=== PATIENT | female | born 1980 | race Caucasian/White ===

== ENCOUNTER 2023-12-30 12:20 | Inpatient (IN) | payer BC, SELFPAY ==
[2023-12-30] VITALS (13 sets, daily range): BP systolic 143–197; BP diastolic 67–114; BMI 46.7; BMI 45.0
[2023-12-30] MEDS: TYLENOL 1000 MG PO (09:39)
[2023-12-30 09:52] LABS: % Basophils 0.4 % (0-2); % Eosinophils 5.9 % (0-6); % Immature Granulocytes 0.2 % (0-0.5); % Lymphocytes 20.8 % (20.5-51.1); % Monocytes 5.5 % (1.7-9.3); % Neutrophils 67.2 % (42.2-75.2); Absolute Eosinophils 0.6 10^3/uL (0-0.7); Absolute Lymphocytes 2.2 10^3/uL (1.2-3.4); Absolute Monocytes 0.6 10^3/uL (0.1-0.6); Absolute Neutrophils 6.9 10^3/uL (1.4-6.5); Hematocrit 40.4 % (37.0-47.0); Hemoglobin 13.9 g/dL (12.0-16.0); Mean Corp Hgb Conc. 34.4 g/dL (33.0-37.0); Mean Corpuscular Hgb 28.8 pg (27.0-31.0); Mean Corpuscular Volume 83.8 fL (81.0-99.0); Mean Platelet Volume 8.8 fL (7.4-10.4); Nucleated Red Blood Cells % 0 %; Platelet Count 414 10^3/uL (130-400); Red Blood Cell Count 4.82 10^6/uL (4.20-5.40); Red Cell Dist. Width 12.6 % (11.5-14.5); White Blood Cell Count 10.3 10^3/uL (4.8-10.8)
--- NOTE | 2023-12-30 10:04 | ED.GENMED ---
History of Present Illness
General
Chief Complaint: Blood Pressure Problem
Source: patient
Exam Limitations: none
Time Seen by Provider: 12/30/23 09:06
Nursing documentation reviewed up to this point in time: agreed with
Travel History
Have you had any contact with someone who has COVID-19?: No
Do you have any symptoms of coronavirus? Fever > 100 degrees, chills, cough, shortness of breath, sore throat, loss of taste or smell, muscle aches, or headache?: No
History of Present Illness
History of Present Illness:
Patient is a 43-year-old female with a history of cervical stenosis and migraines in the past with a more recent diagnosis of hypertension over the summer 2022 who presents for elevated blood pressure, headache and blurred vision. Patient says that
since July she has been in the process of being worked up for why she has elevated blood pressure readings anywhere from 180-190/100. It seems to be worse with standing and improved with lying. She was having some flushing and striae in her
abdomen and so her family doctor started with a cortisol level which was 3. This was a serum a.m. cortisol level. She was then referred to endocrine who she saw at [facility] and they did more testing including these following numbers
Norepinephrine 346, epinephrine 29, dopamine, less than 30, DHEA 88, cortisol 5.8, aldosterone 8.3, ACTH 12.6 and this was on 9�13
Patient was then started on hydrocortisone 30 mg which she took for a month and then taper down slowly and is on a dose of 10 currently. The plan is to apparently wean her off completely and then recheck her numbers. Patient was never told that
she could have a pheochromocytoma. She actually has not been really given an explanation of what is causing her blood pressures but they have been continuing to be elevated at home. Her readings are 160s to 180s over 100. She says she feels lousy
most days. She does get headaches which she has currently which is a dull headache and does not feel like one of her typical migraines. She has also had some intermittent blurred vision. Patient yesterday was bumped up from 25 to 50 mg of
metoprolol succinate and added losartan 50 and came into the [facility] lead office for blood pressure check today which was still elevated in the 180s over 90s so she was referred to the emergency department.
Patient is feeling frustrated by the slow workup via endocrine and believes that she needs additional workup. She was coming here for second opinion. I
She denies ongoing chest pain but had a little bit of intermittent chest pain over the last couple of days, denies numbness tingling or weakness in her arms or legs, neck pain, abdominal pain
Past History
Past History
ED Past Medical History: HTN and Other (Cervical disc disease, fibromyalgia, glaucoma which cause migraines which has been treated)
ED Past Surgical History: Orthopedic (Pain management procedures on the spine)
Social History
Tobacco: Non-smoker
Alcohol: None
Drug: None
Personal:
Living: with family
Employment: Employed
Family History
Family History: Other (Noncontributory)
Review of Systems
Review of Systems
Allergies reviewed?: Yes
All Other Systems: Not applicable
Phy Exam
Physical Exam
Physical Exam:
GENERAL: Alert , in no apparent distress elevated BMI
EYE: pupils equal and reactive
NECK: Supple
ENT: o/p clr, mmm.
CARDIAC: Regular rate and rhythm .
LUNGS: Clear breath sounds bilaterally, no acute respiratory distress, no wheezes/rales/rhonchi
ABDOMEN: Soft, obese without focal tenderness, no r/g, no cvat, normal bowel sounds
NEUROLOGICAL: Alert and oriented, no focal neuro deficits cranial nerves intact
SKIN: Warm and dry, skin intact.
MUSCULOSKELETAL: No edema, well perfused. neg last's sign
PSYCH: Normal and appropriate interaction.
Course
Orders/Labs/Results
Orders:
Orders
12/30/23 09:29
Electrocardiogram (*1) Stat
Reason for Study: Other
Other Reason for Exam: Headache
Cardiac Monitoring- Treatment ONCE
EKG- Treatment ONCE
Acetaminophen [Tylenol] 1,000 mg PO NOW STA
12/30/23 09:45
Basic Metabolic Panel Urgent
Complete Blood Count/With Diff Urgent
Glycohemoglobin (HgbA1c) Urgent
Troponin I Urgent
12/30/23 Lunch
Sodium, 2 Gram
At Your Request: Full Participation
12/30/23 10:10
HydrALAZINE [Apresoline] 10 mg IV NOW STA
12/30/23 10:25
Metanephrines, Plasma (free) [S] Urgent
12/30/23 10:26
CMP [Comprehensive Metabolic Panel] Urgent
12/30/23 11:15
Add On- LAB Routine
Tests Added?: HbA1C
Add On- LAB Stat
Tests Added?: urine HCG qual
12/30/23 11:20
US Renal Artery Routine
Comment:
Reason For Exam: HTN. R/O RYDER
12/30/23 11:22
HCG, Urine Qualitative Screen Routine
Comment: PLEASE COLLECT; NO URINE SPECIMEN IN LAB TO ADD ON TO
12/30/23 11:45
Admit/Transfer Patient As Directed
Co-Sign Provider:
Level of Care: Inpatient admission
Assign to:: Telemetry
Physician / Group: hospitalist
Diagnosis: HTN Urgency
Reason for Telemetry: Other
Other Reason for Telemetry: HTN urgency
Date to Stop Telemetry: 01/01/24
Time to Stop Telemetry: 11:00
Reason for Hospitalization: HTN urgency
Expected length of stay greater than two midnights?: Yes
ELOS- Estimated Length of Stay in days: 2
I certify the patient meets the requirements for IP care: Yes
12/30/23 11:46
Code Status As Directed
Resuscitation Status: Full Code
12/30/23 13:32
Albuterol [ProAIR HFA INHALER] 1 puff INH R Q4HPRN PRN
HydrALAZINE [Apresoline] 5 mg IV Q6HPRN PRN
12/30/23 13:32
NEPHROLOGY CONSULT Routine
Consulting Provider: Girish Kirk V.
Was physician already notified: Yes
Reason for consult: HTN
Activity As Directed
Activity Level: Ambulate
Neurological Checks As Directed
Frequency: q8h
Additional Instructions:: 24 hours
Vital Signs As Directed
Frequency: Per unit guidelines
Cpap [RESP] Routine
Patient to use own unit?: Yes
DX Deep Vein Thrombosis Video Routine
12/30/23 14:21
Troponin I Q6H
12/30/23 18:00
Enoxaparin Sodium [Lovenox] 40 mg SC QPM
12/30/23 19:32
Troponin I Q6H
12/30/23 20:00
Duloxetine Delayed Release [Cymbalta Delayed Release] 60 mg PO BID
12/30/23 22:00
Anusol Hc Suppository [Anusol Hc] 25 mg RECTAL HS
12/31/23 06:00
Basic Metabolic Panel IN AM
Complete Blood Count/No Diff IN AM
12/31/23 08:00
Cholecalciferol (Vitamin D3) [VITAMIN D3 (cholecalciferol)] 25 mcg PO DAILY
Cyanocobalamin [Vitamin B-12] 1,000 mcg PO DAILY
Hydrocortisone [Cortef] 10 mg PO DAILY
Losartan [Cozaar] 50 mg PO DAILY
Metoprolol Xl [Toprol Xl] 50 mg PO DAILY
01/01/24 11:00
DC Protocol for Telemetry ONCE
Abnormal Lab Results
12/30/23 12/30/23
09:45 10:26
Plt Count 414 H 10^3/uL
(130-400)
Absolute Neuts (auto) 6.9 H 10^3/uL
(1.4-6.5)
Creatinine 0.5 L mg/dL
(0.6-1.0)
Glucose 137 H mg/dl 131 H mg/dl
(70-99) (70-99)
Hemoglobin A1c 6.5 H %
(4.0-5.6)
ALT 37 H U/L
(0-35)
12/30/23 09:45
12/30/23 10:26
Vital Signs
Initial and Last Documented VS:
Initial Vital Signs
Temp Pulse Resp BP Pulse Ox
98.3 F 66 16 180/95 98
12/30/23 08:57 12/30/23 08:57 12/30/23 08:57 12/30/23 08:57 12/30/23 08:57
Last Documented Vital Signs
Temp Pulse Resp BP Pulse Ox
98.3 F 74 20 155/93 98
12/30/23 15:31 12/30/23 15:31 12/30/23 15:31 12/30/23 15:31 12/30/23 15:31
MDM/Problems Addressed
Differential Diagnosis Includes:
pheo, ryder, pseudotumor
MDM/Problems Addressed:
43 y/o F with ongoign hypertension dx in july, coming in with sypmtomatic htn/htn urgency 180-190/100, positional worsening of bp with standing, some mild blurred vision, headache; on metoprolol 25 xl for a few monhts and just increased to 50
mg daily and added losartan 50 mg with continued bp elevation; also seeing endocrine through [facility] for low cortisol during this BP w/u; the endocrine started hydrocortisone 30 and she is down to 10 mg; i spoke with kory on-call today for
endocrinology who wasn't sure why she was started on the hydrocortisone if her cortisol was only 5, and he thought she would have been w/u for PHEO but i'm not so sure, she never had metanephrines; so i suppose ddx is pseudotumor, pheo, RYDER, etc;
but want to admit for hypertensive urgency; i gave her a dose of hydralazine with some improvement. trop neg. cr normal; ekg normal
*Critical Care Note
Total Time (30-74mins, 75-104mins- exclusive of procedures): Not Applicable
ED Attending Note
-
Portions of this chart may have been created with voice recognition software.� Occasional wrong word or��sound alike� substitutions may have occurred due to the inherent limitations of voice recognition software.
Discharge Plan
Departure
Patient Disposition: Admit
Date of Disposition: 12/30/23
Time of Disposition: 10:15
Admit to: Telemetry
Presentation/result/management discussed w/ accepting MD/DO: Hospitalist
Condition: Fair
Covid-19: Not Applicable
Discharge Problem:
Hypertensive urgency
Interventions
Interventions:
*Risk Screen - Suicide Last Done: 12/30/23 09:07
*General Assessment Last Done: 12/30/23 09:18
*Neglect/Abuse Screening Last Done: 12/30/23 09:07
ED- Fall Risk Assessment Last Done: 12/30/23 12:34
*ED COVID-19 Vaccine History Last Done: 12/30/23 08:57
*Nursing Disposition Last Done: 12/30/23 13:08
ED- Cardiac Assessment Last Done: 12/30/23 09:17
ED- Neurological Assessment Last Done: 12/30/23 09:18
ED- Pulmonary Assessment Last Done: 12/30/23 09:18
Discharge Date and Time
Discharge Date/Time: 12/30/23 13:00
[2023-12-30 10:14] LABS: Blood Urea Nitrogen 13 mg/dl (7-17); Calcium 9.3 mg/dl (8.4-10.2); Chloride 105 mmol/L (98-107); Estimated Creatinine Clearance > 125 ml/min; Glucose 137 mg/dl (70-99); Sodium 136 mmol/L (135-145); eGFR > 60.00
[2023-12-30] MEDS: APRESOLINE 10 MG IV (10:15)
[2023-12-30 10:17] LABS: Troponin I < 0.012 ng/ml
[2023-12-30 10:43] LABS: Carbon Dioxide 24 mmol/L (22-30)
[2023-12-30 10:50] LABS: ALT (SGPT) 37 U/L (0-35); AST (SGOT) 35 U/L (14-36); Albumin 3.9 g/dl (3.5-5.0); Alkaline Phosphatase 89 U/L (38-126); Blood Urea Nitrogen 13 mg/dl (7-17); Calcium 9.2 mg/dl (8.4-10.2); Chloride 106 mmol/L (98-107); Estimated Creatinine Clearance > 125 ml/min; Glucose 131 mg/dl (70-99); Potassium 4.2 mmol/L (3.5-5.1); Sodium 136 mmol/L (135-145); Total Bilirubin 0.6 mg/dl (0.2-1.3); Total Protein 6.8 g/dl (6.3-8.2); eGFR > 60.00
[2023-12-30 11:02] LABS: Carbon Dioxide 23 mmol/L (22-30)
--- NOTE | 2023-12-30 11:11 | HPS.HSE ---
Family Physician
-
Family Physician: Varsha Mcmillan PA-C
Chief Complaint
-
Elevated BP
History of Present Illness
43-year-old female was diagnosed with hypertension since July 2023. She was at an appointment where her blood pressure was found to be high. Then saw PCP Dr.Molly Mcmillan , who also noted blood pressure to be high. She was started on
metoprolol 25 mg and was referred to endocrinology. She has been seeing from [facility]. She had some secondary hypertension workup done. Her cortisol level was found to be 3.8. (5.8 on another lab) she was started on hydrocortisone 15
in the morning and 10 in the evening in July. Then slowly she is being weaned down and she is on 10 mg p.o. daily dose now. She had serum ACTH level which was 12.6, aldosterone level 8.3, DHEA 88, dopamine less than 30, epinephrine 29,
norepinephrine 346. She states that her standing blood pressure is always high and she has a pulsating feeling in her head. She also has had some nausea and blurry vision. She always feels hot and flushed. Her pressure was still high yesterday
at endocrinology office where she saw Dr. Kristyn Hodge. Metoprolol dose was increased to 50 mg and losartan was added. She took 50 mg of losartan yesterday and this morning. Today her blood pressure was still elevated at endocrinology office
and she decided to come to [facility] for second opinion.
She does not have any numbness weakness tingling anywhere in the body.
No mention of chest pain to me even though ER has documented that.
Medical History
Past Medical History
Past Medical History: Reports Other
Additional Past Medical History:
Migraine, hypertension, sleep apnea on CPAP, spinal stenosis, fibromyalgia, anxiety depression, obesity, descending colon polyp, internal hemorrhoids
Past Surgical History: Reports Other
Additional Past Surgical History:
, general surgery, eye surgery for glaucoma, septoplasty, colonoscopy 2020, endoscopy 2021
Social History
Tobacco: Former Smoker (Quit smoking 2017)
Alcohol: Occasional
Drug: None
Personal:
Living: With Family
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
Family History
Family History: Diabetes (Mother) and Other (Father alcoholic and he has depression and anxiety)
Allergies / Home Medications
Allergies reflects when Allergies were last updated in [employer].
Home Medications with original date entered in [employer]
Allergy/Medication List:
Allergies
Allergy/AdvReac Type Severity Reaction Status Date / Time
No Known Allergies Allergy Verified 12/30/23 09:04
Home Medications
albuterol sulfate 90 mcg/actuation aerosol inhaler 1 puff inhalation R Q4HPRN PRN ASTHMA 06/18/21
cholecalciferol (vitamin D3) 25 mcg (1,000 unit) tablet (Vitamin D3) 25 mcg PO DAILY Supplement 12/30/23
cyanocobalamin (vitamin B-12) 1,000 mcg tablet 1,000 mcg PO DAILY Supplement 12/30/23
duloxetine 60 mg capsule,delayed release (Cymbalta) 60 mg PO BID Mental Health/Anxiety 12/30/23
flaxseed oil 1,000 mg capsule 1,000 mg PO BID Supplement 12/30/23
ginkgo biloba 40 mg tablet 40 mg PO DAILY Supplement 12/30/23
hydrocortisone 10 mg tablet 10 mg PO DAILY Anti-Inflammatory 12/30/23
losartan 50 mg tablet 50 mg PO DAILY Blood Pressure 12/30/23
meloxicam 15 mg tablet 15 mg PO DAILY Pain 12/30/23
metoprolol succinate 50 mg tablet,extended release 24 hr (Toprol XL) 50 mg PO DAILY Blood Pressure 12/30/23
turmeric 400 mg capsule 400 mg PO QPM Supplement 12/30/23
Review of Systems
-
A 12 point ROS was completed and negative except as noted: Yes
Constitutional: Reports Weight Gain (15 pounds since July when she was started on steroids)
Respiratory: Denies Cough or Trouble Breathing
Cardiac: Denies Chest Pain
Abdomen/GI: Denies Abdominal Pain
: Reports Other (Hemorrhoidal bleeding off-and-on)
Neurological: Reports Dizzy
Physical Exam
Vital Signs
Vital Signs
Temp Pulse Resp BP Pulse Ox
98.3 F 63 16 176/93 94
12/30/23 08:57 12/30/23 10:00 12/30/23 10:00 12/30/23 10:15 12/30/23 10:00
Physical Exam
General: Comfortable and Obese
Respiratory: Clear
Cardiac: S1/S2 and Regular Rhythm
GI: Soft
Skin: Warm
Neuro: No Motor Deficits and Nonfocal/grossly intact
Psych: Calm and Intact Judgment/Insight
Laboratory Results
-
12/30/23 09:45
12/30/23 10:26
Laboratory Results
Total Bilirubin 0.6 mg/dl (0.2-1.3) 12/30/23 10:26
AST 35 U/L (14-36) 12/30/23 10:26
ALT 37 U/L (0-35) H 12/30/23 10:26
Alkaline Phosphatase 89 U/L (38-126) 12/30/23 10:26
Troponin I < 0.012 ng/ml 12/30/23 09:45
Data Reviewed
-
CT Scan: Report Reviewed by me (CT of the head-no acute intracranial abnormality)
Medical Tests (Nuc Med, Echo, EKG etc): Image Personally Visualized and interpreted (EKG-sinus rhythm no ischemia)
Impression/Plan
-
IMPRESSION/PLAN:
# Hypertensive urgency
Poorly controlled hypertension
Admit to telemetry
2 Gram sodium diet
Blood pressure-better after IV hydralazine
Continue losartan and metoprolol
Consider addition of calcium channel blockers-nifedipine
Aldosterone level not elevated
Secondary hypertension workup as above in H&P
Renal artery ultrasound to rule out stenosis
Hold meloxicam
Nephrology evaluation
# Adrenal insufficiency
Patient was started on hydrocortisone 15 in the morning and 10 in the evening in July
Is being weaned down to 10 mg in the morning now
The plan is to get repeat as outpatient
Follows with at [facility]
# Hyperglycemia-check hemoglobin A1c
# Asthma-continue as needed nebulizer treatments
# Fibromyalgia-continue Cymbalta
# History of glaucoma-she used to get headaches which got better after glaucoma surgery
She does not use any eyedrops note
# Internal hemorrhoids-found on colonoscopy in 2020. Patient has off-and-on bleeding
Needs to see GI as outpatient she has an appointment in May
Hemoglobin is stable
Will order hydrocortisone suppositories
# Sleep apnea-continue CPAP
# Obesity with a BMI of 46
States that she gained 15 pounds since July
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
# Fo-toofxa-utdr 2017
# DVT prophylaxis-Lovenox
# Full code
Discussed with family at bedside
[2023-12-30 11:43] LABS: HCG, Urine Qualitative Screen Negative
[2023-12-30 12:13] LABS: Glycohemoglobin (HgbA1c) 6.5 % (4.0-5.6)
[2023-12-30 14:58] LABS: Troponin I < 0.012 ng/ml
--- NOTE | 2023-12-30 15:39 | W.PN.UPDATE ---
Update Note
Progress Note Update
Hemoglobin A1c 6.5. Patient made aware.
Diabetic education consult
Dietary consult
Accu-Cheks
Patient education
Discussed about metformin she is open to starting it therefore we will start
Diet and weight loss advised also
[2023-12-30 16:32] LABS: Glucose - Point of Care 96 mg/dl (70-99)
--- NOTE | 2023-12-30 17:38 | W.CON.NEPH ---
Consultation
-
Date/Time Consultation Requested: 12/30/23 1330
Date/Time Consultation Performed: 12/30/23 1700
Requesting Provider: Dr Junie Evans
Performing Provider: Fara Lewis
Reason for Consultation: HTN
Medical History
-
Chief Complaint: HTN
History of Present Illness:
43-year-old female was diagnosed with new onset of hypertension since July 2023.�She subsequently saw her PCP and w/u was done which noted to have low cortisol and eventually saw Endo Dr Young at [place], further w/u for secondary
hypertension was done.� Her cortisol level was found to be 3.8. (5.8 on another lab) and she was started on hydrocortisone 15 in the morning and 10 in the evening in July-weaned down to 10mg daily now.�Her BP remained high symptomatic when
stands with mild palpitation hence was started on metoprolol by PCP. Which did not help much of her BPs and when she was at Endo office yeterday her BP were 170s and metoprolol increased and Losartan added. This morning her BPs were still high 180s
hence she came to ER. She reports whenever BP high she feels it specially standing and some chest tightness. No SOB or edema. She is not particularly following low salt diet. Old labs: serum ACTH level which was 12.6, aldosterone level 8.3, DHEA
88, dopamine less than 30, epinephrine 29, norepinephrine 346.�
She does not have any numbness weakness tingling anywhere in the body. No dysuria, reports compliance with CPAP follows Dr Gusman.
She also follows Rheum at [facility] for fibromyalgia controlled on high dose of cymbalta.
On arrival her SBP in 180s, better at 150 with hydralzine iv.
Past Medical History
Migraine, hypertension, sleep apnea on CPAP, spinal stenosis, fibromyalgia, anxiety depression, obesity, descending colon polyp, internal hemorrhoids
Past Surgical History:
, general surgery, eye surgery for glaucoma, septoplasty, colonoscopy 2020, endoscopy 2020
Social History
Tobacco: Former Smoker (quit in 2018)
Alcohol: Occasional
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
Family History
no ckd
Diabetes (Mother) and Other (Father alcoholic and he has depression and anxiety)
Allergies / Home Medications
Allergy/AdvReac Type Severity Reaction Status Date / Time
No Known Allergies Allergy Verified 12/30/23 09:04
Medication Instructions Recorded Confirmed Type
albuterol sulfate 90 mcg/actuation 1 puff inhalation R Q4HPRN PRN 06/18/21 12/30/23 History
aerosol inhaler ASTHMA
cholecalciferol (vitamin D3) 25 25 mcg PO DAILY Supplement 12/30/23 12/30/23 History
mcg (1,000 unit) tablet (Vitamin
D3)
cyanocobalamin (vitamin B-12) 1,000 mcg PO DAILY Supplement 12/30/23 12/30/23 History
1,000 mcg tablet
duloxetine 60 mg capsule,delayed 60 mg PO BID Mental Health/Anxiety 12/30/23 12/30/23 History
release (Cymbalta)
flaxseed oil 1,000 mg capsule 1,000 mg PO BID Supplement 12/30/23 12/30/23 History
fluticasone furoate 200 1 inh inhalation DAILY 12/30/23 12/30/23 History
mcg-vilanterol 25 mcg/dose
inhalation powder (Breo Ellipta)
ginkgo biloba 40 mg tablet 40 mg PO DAILY Supplement 12/30/23 12/30/23 History
hydrocortisone 10 mg tablet 10 mg PO DAILY Anti-Inflammatory 12/30/23 12/30/23 History
lorazepam 0.5 mg tablet 0.5 mg PO TID PRN anxiety 12/30/23 12/30/23 History
losartan 50 mg tablet 50 mg PO DAILY Blood Pressure 12/30/23 12/30/23 History
meloxicam 15 mg tablet 15 mg PO DAILY Pain 12/30/23 12/30/23 History
metoprolol succinate 50 mg 50 mg PO DAILY Blood Pressure 12/30/23 12/30/23 History
tablet,extended release 24 hr
(Toprol XL)
turmeric 400 mg capsule 400 mg PO QPM Supplement 12/30/23 12/30/23 History
Review of Systems
-
All complete 12 point ROS inquired and found negative other than stated in HPI
History Source: Patient
Physical Exam
Vital Signs
Vital Signs
Temp Pulse Resp BP Pulse Ox
98.3 F 74 20 155/93 98
12/30/23 15:31 12/30/23 15:31 12/30/23 15:12/30/23 15:12/30/23 15:31
Lab Results
WBC 10.3 10^3/uL (4.8-10.8) 12/30/23 09:45
RBC 4.82 10^6/uL (4.20-5.40) 12/30/23 09:45
Hgb 13.9 g/dL (12.0-16.0) 12/30/23 09:45
Hct 40.4 % (37.0-47.0) 12/30/23 09:45
Plt Count 414 10^3/uL (130-400) H 12/30/23 09:45
Sodium 136 mmol/L (135-145) 12/30/23 10:26
Potassium 4.2 mmol/L (3.5-5.1) 12/30/23 10:26
Chloride 106 mmol/L (98-107) 12/30/23 10:26
Carbon Dioxide 23 mmol/L (22-30) 12/30/23 10:26
BUN 13 mg/dl (7-17) 12/30/23 10:26
Creatinine 0.5 mg/dL (0.6-1.0) L 12/30/23 10:26
eGFR > 60.00 12/30/23 10:26
Glucose 131 mg/dl (70-99) H 12/30/23 10:26
Calcium 9.2 mg/dl (8.4-10.2) 12/30/23 10:26
Albumin 3.9 g/dl (3.5-5.0) 12/30/23 10:26
SignedOrder #:[id number]
Exams:� US Renal Artery
Renal Artery Duplex
Date of Test: 12/30/2023 11:55 AM
INDICATIONS: HTN. R/O TIERRA
PRIOR STUDY: none
TECHNIQUE: Real-time grayscale color duplex ultrasonography was used to interrogate the real arteries.
FINDINGS:
RIGHT RENAL:
Renal length 11.81 cm
Proximal renal artery� 154 cm/s
Mid renal artery� 161 cm/s
Distal renal artery� 155 cm/s
Upper cortex normal waveform RI 0.72
Mid cortex normal waveform RI: 0.71
Lower cortex normal waveform RI: 0.78
LEFT RENAL:
Renal length 10.68 cm
Proximal renal artery 134 cm/s
Mid renal artery 134 cm/s
Distal renal artery 82.7 cm/s
Upper cortex normal waveform RI: 0.73
Mid cortex normal waveform RI 0.67
Lower cortex normal waveform RI:0.77
Proximal aortic velocity:104.9 cm/s
Right renal/aorta ratio (RAR) = 1.5
Left renal/aorta ratio (RAR) = 1.3
Normal RAR values (3.5 or <)
IMPRESSION: Slightly difficult study technically secondary to patient habitus. However findings in visualized renal arteries appear normal. No evidence of significant renal artery stenosis bilaterally. Findings communicated to ordering providers
(study ordered from the emergency room), Dr. Tahir Jorge and Dr. Junie Evans via [place] text on 12/30/23 at 12:33pm.
MANAGER MEDICAL DEVICE: Victoria Bell [facility] RVT
��
Electronically signed by Dontrell Crowell 12/30/2023 12:34 PM
Dictated By: Dontrell Crowell MD
Dictated Date & Time: 12/30/23 1219
Signed/Co-Signer By: Dontrell Crowell MD /
Physical Exam
General: Awake, Alert, Oriented, AOx3 and No Distress
HEENT: EOMI, Conjunctivae Clear, Hearing Normal and Other (thick neck)
Respiratory: Clear
Cardiac: S1/S2 and No Edema
Abdomen: Soft, Nontender, Nondistended and Other (obese)
Musculoskeletal: No Cyanosis and No Edema
Skin: No Rash
Neuro: Nonfocal/Grossly Intact
Psych: Mood/afflect pleasant and Insight/judgement good
Assessment/Plan
-
IMP:
Hypertensive urgency
Adrenal insufficiency
new DM a1c 6.5
Asthma
Fibromyalgia
History of glaucoma
Internal hemorrhoids-found on colonoscopy in 2020.� Patient has off-and-on bleeding
Sleep apnea-continue CPAP
Obesity with a BMI of 46
History of cervical spine DJD, mild left-sided neural foraminal stenosis C4-C5 and right-sided C6-C7
[id number] 2017
Plan:
A/w HTN urgency recent onset of HTN
w/u noted from the chart and does not support Pheo -repeat metanephrins as ordered
Jet was not high so unlikely hyperaldostate, states her DANIELLE is under control
no renal art stenosis on US
good kidney function cr of 0.6, check UA for baseline, EKG normal sinus, no LVH change
would add nifedipine 30mg daily, keep metoprolol same, unable to use labetalol due to h/o Asthma
cont Losartan at 50mg daily and titrate as needed
cont prn hydralazine
Low salt diet and wt loss needed
Avoid NSAIDs
steroids for ?adrenal insufficiency
d/w pt in detail
d/w nursing
Data Reviewed
-
Ultrasound: Report Reviewed by me
Labs: Labs Reviewed by me
[2023-12-30] MEDS: GLUCOPHAGE XR EXTENDED RELEASE 500 MG PO (18:10)
[2023-12-30] MEDS: LOVENOX 40 MG SC (18:10)
[2023-12-30] MEDS: PROCARDIA XL (EXTENDED RELEASE) 30 MG PO (18:52)
[2023-12-30] MEDS: TYLENOL 650 MG PO ×2 (18:57→22:58)
[2023-12-30 19:36] LABS: Troponin I < 0.012 ng/ml
[2023-12-30] MEDS: APRESOLINE 5 MG IV (20:37)
[2023-12-30] MEDS: CYMBALTA DELAYED RELEASE 60 MG PO (20:48)
[2023-12-30] MEDS: ZOFRAN 4 MG IV (22:58)
[2023-12-30] MEDS: ATIVAN 0.5 MG PO (23:42)
[2023-12-31] VITALS (8 sets, daily range): BP systolic 134–173; BP diastolic 74–109; PULSE 101–139
--- NOTE | 2023-12-31 00:01 | PTCARENOTE ---
Pt reports nausea and that she is feeling anxious. House NEEDLE PROCESS FELT GOODS SUPERVISOR Emilia Nelson notified, order for 1x IV Zofran 4mg and PRN 0.5mg Ativan PO added and provided to pt. Will continue to monitor.
[2023-12-31] MEDS: APRESOLINE 5 MG IV (04:30)
[2023-12-31] MEDS: TYLENOL 650 MG PO ×2 (04:31→20:00)
[2023-12-31 05:07] LABS: Urine Albumin Trace (Neg - Trace); Urine Bilirubin Negative (Negative); Urine Character Slightly Cloudy (Clear); Urine Color Yellow; Urine Glucose Negative (Negative); Urine Ketone 2+ (Negative); Urine Leukocyte Negative (Negative); Urine Nitrite Negative (Negative); Urine Occult Blood 4+ (Negative); Urine Urobilinogen Negative (Neg - 1+); Urine pH 6.5 (5.0-9.0)
[2023-12-31] MEDS: ZOFRAN 4 MG IV (06:08)
--- NOTE | 2023-12-31 06:19 | PTCARENOTE ---
Pt reports 1x episode of nausea and emesis this AM. House COPYING MACHINE MECHANIC Emilia Nelson notified, order placed for IV Zofran 4mg q6h ordered and given to pt. Will continue to monitor.
[2023-12-31 06:53] LABS: Urine Bacteria Few (Negative); Urine Red Blood Cell 0-2 /HPF (0-2)
[2023-12-31 08:14] LABS: Hematocrit 43.3 % (37.0-47.0); Hemoglobin 15.1 g/dL (12.0-16.0); Mean Corp Hgb Conc. 34.9 g/dL (33.0-37.0); Mean Corpuscular Hgb 29.2 pg (27.0-31.0); Mean Corpuscular Volume 83.6 fL (81.0-99.0); Mean Platelet Volume 8.9 fL (7.4-10.4); Platelet Count 449 10^3/uL (130-400); Red Blood Cell Count 5.18 10^6/uL (4.20-5.40); Red Cell Dist. Width 12.7 % (11.5-14.5); White Blood Cell Count 10.1 10^3/uL (4.8-10.8)
[2023-12-31] MEDS: PROTONIX 40 MG PO (08:14)
[2023-12-31] MEDS: CORTEF 10 MG PO (08:14)
[2023-12-31] MEDS: COZAAR 50 MG PO (08:14)
[2023-12-31] MEDS: CYMBALTA DELAYED RELEASE 60 MG PO ×2 (08:14→20:00)
[2023-12-31] MEDS: ULTRAM 50 MG PO (08:14)
[2023-12-31] MEDS: PROCARDIA XL (EXTENDED RELEASE) 30 MG PO (08:14)
[2023-12-31] MEDS: GLUCOPHAGE XR EXTENDED RELEASE 500 MG PO (08:15)
[2023-12-31] MEDS: VITAMIN D3 (cholecalciferol) 25 MCG PO (08:15)
[2023-12-31] MEDS: VITAMIN B-12 1000 MCG PO (08:15)
[2023-12-31 08:17] LABS: Glucose - Point of Care 216 mg/dl (70-99)
[2023-12-31 08:52] LABS: Blood Urea Nitrogen 13 mg/dl (7-17); Calcium 9.9 mg/dl (8.4-10.2); Carbon Dioxide 21 mmol/L (22-30); Chloride 99 mmol/L (98-107); Estimated Creatinine Clearance > 125 ml/min; Glucose 166 mg/dl (70-99); Potassium 4.4 mmol/L (3.5-5.1); Sodium 136 mmol/L (135-145); eGFR > 60.00
[2023-12-31] MEDS: ATIVAN 0.5 MG PO ×2 (11:26→16:27)
--- NOTE | 2023-12-31 11:36 | CM ---
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
Patient has a prescription plan and uses [facility] pharmacy.
PCP: Varsha Mcmillan
Plan; Home when stable, no needs.
--- NOTE | 2023-12-31 12:00 | PTCARENOTE ---
Diabetes Education- New diagnosis T2DM, A1C 6.5%. Prescribed Metformin XR 500 mg QD. Provided with and instructions given on Contour Next Gen glucometer, excellent return demonstration with result of 126 mg/dl, pre lunch. Her BS this morning of 216
mg/dl was after she had consumed breakfast. Aware of testing technique, sites, and expected results. Information marked in take home education booklet. She has been seen by public relations. Information on outpt DSME classes given, she expresses interest.
Stretcher her to take her for MRI.
--- NOTE | 2023-12-31 14:17 | PTCARENOTE ---
Pt had a tachy episode into 150s while walking to the br. Pt stated she felt flush and has a bad headache. She is now lying in bed and BP is 143/84, heart rate is still sitting in the 100s. Dr. Cristina matthew.
--- NOTE | 2023-12-31 15:36 | W.PN.HOSP.TC ---
Today's Communication/Plan
-
MRI
Add Coreg
Watch blood pressure
Hydrocortisone to be stopped per patient's ruling machine operator
Assessment / Plan
Assessment / Plan
CVS: S1-S2 normal
Chest: CTA B/L
Abdomen: Soft, NT / Bowel sounds present
Extremities: No edema
[employer] FIELD COORDINATOR: Non focal
# Hypertensive urgency
Poorly controlled hypertension
Continue losartan. Metoprolol discontinued. Add Coreg because of mild palpitations
Continue Nifedipine 30 mg
2 Gram sodium diet
Aldosterone level not elevated
Secondary hypertension workup as above in H&P
Repeat plasma metanephrine, normetanephrine levels sent
Renal artery ultrasound to rule out stenosis
Hold meloxicam
Nephrology evaluation
# Headache-patient states that she gets headaches from the neck reasons
Lidocaine patch for the neck
Check MRI as ordered could not be done today because of scheduling reasons.
# Adrenal insufficiency
Patient was started on hydrocortisone 15 in the morning and 10 in the evening in July
Is being weaned down to 10 mg in the morning now
Patient seen neurologist called her and told her to stop hydrocortisone. Will hold tomorrow's dose. May need to monitor blood pressure
Follows with at [place]
# Diabetes with hemoglobin A1c 6.5. New diagnosis
Diabetic education
Dietary consultation
Metformin started
# Microscopic hematuria-repeat as outpatient
# Asthma-continue as needed nebulizer treatments
# Fibromyalgia-continue Cymbalta
# History of glaucoma-she used to get headaches which got better after glaucoma surgery
She does not use any eyedrops note
# Internal hemorrhoids-found on colonoscopy in 2020.� Patient has off-and-on bleeding
Needs to see GI as outpatient she has an appointment in May
Hemoglobin is stable
Will order hydrocortisone suppositories
# Sleep apnea-continue CPAP
# Obesity with a BMI of 46
States that she gained 15 pounds since July
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
# [id number] 2017
# DVT prophylaxis-Lovenox
# Full code
Discussed with family at bedside
Discussed with nursing
Discussed with nephrology
Anticipated Discharge: Within 24 hours
Subjective/Interval History
-
Date of Service: December 31, 2023
Objective Data
-
Labs:
Laboratory Results
12/31/23
07:06
WBC 10.1
Hgb 15.1
Hct 43.3
Plt Count 449 H
Sodium 136
Potassium 4.4
Chloride 99
Carbon Dioxide 21 L
BUN 13
Creatinine 0.5 L
Glucose 166 H
Calcium 9.9
Vital Signs:
Vital Signs
Temp Pulse Resp BP Pulse Ox
98 F 94 18 160/86 97
12/31/23 11:53 12/31/23 11:53 12/31/23 11:53 12/31/23 11:53 12/31/23 11:53
I&O
12/30/23 12/31/23 01/01/24
06:59 06:59 06:59
Intake Total 2039
Balance 2039
--- NOTE | 2023-12-31 15:59 | W.PN.NEPH.PH ---
Today's Communication / Plan
-
- started coreg 3.125mg BID
- max losartan at 100mg daily
Assessment/Plan
-
IMP:
Hypertensive urgency
Microscopic hematuria
Adrenal insufficiency
new DM a1c 6.5
Asthma
Fibromyalgia
History of glaucoma
Internal hemorrhoids-found on colonoscopy in 2020.� Patient has off-and-on bleeding
Sleep apnea-continue CPAP
Obesity with a BMI of 46
History of cervical spine DJD, mild left-sided neural foraminal stenosis C4-C5 and right-sided C6-C7
[id number] 2017
Plan:
A/w HTN urgency recent onset of HTN
- likely some component of pain contributing
- might have essential HTN as workup thus far is negative
w/u noted from the chart and does not support Pheo -repeat metanephrins as ordered (pending)
Jet was not high so unlikely hyperaldostate, states her DANIELLE is under control
no renal art stenosis on US
good kidney function cr of 0.6, check UA for baseline, EKG normal sinus, no LVH change
planned for MRI brain
would add nifedipine 30mg daily, change metoprolol to coreg 3.125mg BID (can uptitrate as needed), unable to use labetalol due to h/o Asthma
increase losartan to 100mg daily
Low salt diet and wt loss needed
Avoid NSAIDs
steroids for ?adrenal insufficiency
plan for follow up with neph as outpatient
d/w pt in detail
d/w nursing
-
-
Date of Service: December 31, 2023
CC / HPI / ROS
-
Chief Complaint:
HTN
History of Present Illness:
hypertensive urgency
headache
Adrenal insufficiency (on steroids -- likely some contribution to HTN), stopping tomorrow
Diabetes
Microscopic hematuria
Review of Systems:
continues to complain of neck pain
Labs
-
Labs:
WBC 10.1 10^3/uL (4.8-10.8) 12/31/23 07:06
RBC 5.18 10^6/uL (4.20-5.40) 12/31/23 07:06
Hgb 15.1 g/dL (12.0-16.0) 12/31/23 07:06
Hct 43.3 % (37.0-47.0) 12/31/23 07:06
Plt Count 449 10^3/uL (130-400) H 12/31/23 07:06
Sodium 136 mmol/L (135-145) 12/31/23 07:06
Potassium 4.4 mmol/L (3.5-5.1) 12/31/23 07:06
Chloride 99 mmol/L (98-107) 12/31/23 07:06
Carbon Dioxide 21 mmol/L (22-30) L 12/31/23 07:06
BUN 13 mg/dl (7-17) 12/31/23 07:06
Creatinine 0.5 mg/dL (0.6-1.0) L 12/31/23 07:06
eGFR > 60.00 12/31/23 07:06
Glucose 166 mg/dl (70-99) H 12/31/23 07:06
Calcium 9.9 mg/dl (8.4-10.2) 12/31/23 07:06
Albumin 3.9 g/dl (3.5-5.0) 12/30/23 10:26
Physical Exam
-
Vital Signs:
Vital Signs
Temp Pulse Resp BP Pulse Ox
98 F 94 18 160/86 97
12/31/23 11:53 12/31/23 11:53 12/31/23 11:53 12/31/23 11:53 12/31/23 11:53
Cardiovascular:: Regular rate and rhythm
Respiratory:: Bilateral: CTA
Lung Excursion:: Normal
Abdomen:: Nontender and Soft
Bowel Sounds:: Normal
Extremity Edema:: None: Bilateral:
Navarro Catheter: No
[2023-12-31] MEDS: LIDOCAINE 4% PATCH 1 PATCH TOPICAL (16:23)
[2023-12-31] MEDS: LOVENOX 40 MG SC (17:57)
[2023-12-31] MEDS: COREG 3.125 MG PO (19:59)
[2023-12-31 21:41] LABS: Glucose - Point of Care 125 mg/dl (70-99)
[2024-01-01 03:34] VITALS: BP 133/78
[2024-01-01] MEDS: LIDOCAINE 4% PATCH 1 PATCH TOPICAL (08:06)
[2024-01-01] MEDS: CYMBALTA DELAYED RELEASE 60 MG PO ×2 (08:07→20:44)
[2024-01-01] MEDS: TYLENOL 650 MG PO ×2 (08:07→18:10)
[2024-01-01] MEDS: GLUCOPHAGE XR EXTENDED RELEASE 500 MG PO (08:07)
[2024-01-01] MEDS: COREG 3.125 MG PO ×2 (08:07→10:06)
[2024-01-01] MEDS: VITAMIN B-12 1000 MCG PO (08:07)
[2024-01-01] MEDS: VITAMIN D3 (cholecalciferol) 25 MCG PO (08:08)
[2024-01-01] MEDS: PROCARDIA XL (EXTENDED RELEASE) 30 MG PO (08:08)
[2024-01-01] MEDS: ATIVAN 0.5 MG PO ×2 (08:08→21:34)
[2024-01-01] MEDS: COZAAR 100 MG PO (08:10)
[2024-01-01 08:12] VITALS: BP 150/94
[2024-01-01 08:21] LABS: Glucose - Point of Care 248 mg/dl (70-99)
--- NOTE | 2024-01-01 10:09 | W.PN.HOSP.TC ---
Addendum entered and electronically signed by Junie Evans MD 01/01/24 14:08:
DDImer neg
Check TSH
Original Note:
Today's Communication/Plan
-
Watch BP and HR
DDImer
Assessment / Plan
Assessment / Plan
CVS: S1-S2 normal
Chest: CTA B/L
Abdomen: Soft, NT / Bowel sounds present
Extremities: No edema
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
#Tachy with ambulation-more since she was started on calcium channel blockers
Possible reflex tachycardia
Increase Coreg to 6.25 twice daily with an overdose
Check D-dimer
No risk factors or symptoms of PE
If positive will get CTA
# Hypertensive urgency
Poorly controlled hypertension
Continue losartan 100 mg . Metoprolol discontinued. Increase Coreg because of Tach
Continue Nifedipine 30 mg.
2 Gram sodium diet.
Aldosterone level not elevated.
Secondary hypertension workup as above in H&P.
Repeat plasma metanephrine, normetanephrine levels sent.
Renal artery ultrasound to rule out stenosis.
Hold meloxicam.
Nephrology evaluation appreciated.
# Headache-patient states that she gets headaches from the neck reasons
No Blurry vision.
Lidocaine patch for the neck.
MRI Brain with out acute changes.
# Adrenal insufficiency
Patient was started on hydrocortisone 15 in the morning and 10 in the evening in July
Was being weaned.
Last dose 12/31/23.
Follows with at [place].
# Diabetes with hemoglobin A1c 6.5. New diagnosis.
Diabetic education.
Dietary consultation.
Metformin started.
# Microscopic hematuria-repeat as outpatient
# Asthma-continue as needed nebulizer treatments
# Fibromyalgia-continue Cymbalta
# History of glaucoma-she used to get headaches which got better after glaucoma surgery
She does not use any eyedrops note
# Internal hemorrhoids-found on colonoscopy in 2020.� Patient has off-and-on bleeding
Needs to see GI as outpatient she has an appointment in May
Hemoglobin is stable
Will order hydrocortisone suppositories
# Sleep apnea-continue CPAP
# Obesity with a BMI of 45
States that she gained 15 pounds since July
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
# [id number] 2017
# DVT prophylaxis-Lovenox
# Full code
Discussed with nursing
Discussed with nephrology
Anticipated Discharge: Within 24 hours
Subjective/Interval History
-
Date of Service: January 01, 2024
Objective Data
-
Vital Signs:
Vital Signs
Temp Pulse Resp BP Pulse Ox
98.4 F 111 18 150/94 97
01/01/24 08:12 01/01/24 08:12 01/01/24 08:12 01/01/24 08:12 01/01/24 08:12
I&O
12/31/23 01/01/24 01/02/24
06:59 06:59 06:59
Intake Total 2039 540 / 1020 480 / 480
Balance 2039 540 / 1020 480 / 480
[2024-01-01 11:10] LABS: D-Dimer 0.28 ug/mlFEU (0.00-0.50)
[2024-01-01 11:35] VITALS: BP 141/92
--- NOTE | 2024-01-01 11:55 | W.PN.NEPH.PH ---
Today's Communication / Plan
-
BP improved
tachycardia noted --> clot evaluation in process
Assessment/Plan
-
IMP:
Hypertensive urgency
Microscopic hematuria
Adrenal insufficiency
new DM a1c 6.5
Asthma
Fibromyalgia
History of glaucoma
Internal hemorrhoids-found on colonoscopy in 2020.� Patient has off-and-on bleeding
Sleep apnea-continue CPAP
Obesity with a BMI of 46
History of cervical spine DJD, mild left-sided neural foraminal stenosis C4-C5 and right-sided C6-C7
[id number] 2017
Plan:
A/w HTN urgency recent onset of HTN
- likely some component of pain contributing
- might have essential HTN as workup thus far is negative
w/u noted from the chart and does not support Pheo -repeat metanephrins as ordered (pending)
Jet was not high so unlikely hyperaldostate, states her DANIELLE is under control
no renal art stenosis on US
good kidney function cr of 0.6, check UA for baseline, EKG normal sinus, no LVH change
MRI wnl, CTH nl
BP meds: nifedipine 30mg daily, coreg 6.25mg BID, losartan 100mg daily
Low salt diet and wt loss needed
Avoid NSAIDs
steroids for ?adrenal insufficiency
plan for follow up with neph as outpatient
d/w pt in detail
d/w nursing
-
-
Date of Service: January 01, 2024
CC / HPI / ROS
-
Chief Complaint:
HTN
History of Present Illness:
hypertensive urgency
headache
Adrenal insufficiency (on steroids -- likely some contribution to HTN), stopped 01/02
Diabetes
Microscopic hematuria
Review of Systems:
continues to complain of neck pain
Labs
-
Labs:
WBC 10.1 10^3/uL (4.8-10.8) 12/31/23 07:06
RBC 5.18 10^6/uL (4.20-5.40) 12/31/23 07:06
Hgb 15.1 g/dL (12.0-16.0) 12/31/23 07:06
Hct 43.3 % (37.0-47.0) 12/31/23 07:06
Plt Count 449 10^3/uL (130-400) H 12/31/23 07:06
Sodium 136 mmol/L (135-145) 12/31/23 07:06
Potassium 4.4 mmol/L (3.5-5.1) 12/31/23 07:06
Chloride 99 mmol/L (98-107) 12/31/23 07:06
Carbon Dioxide 21 mmol/L (22-30) L 12/31/23 07:06
BUN 13 mg/dl (7-17) 12/31/23 07:06
Creatinine 0.5 mg/dL (0.6-1.0) L 12/31/23 07:06
eGFR > 60.00 12/31/23 07:06
Glucose 166 mg/dl (70-99) H 12/31/23 07:06
Calcium 9.9 mg/dl (8.4-10.2) 12/31/23 07:06
Albumin 3.9 g/dl (3.5-5.0) 12/30/23 10:26
Physical Exam
-
Vital Signs:
Vital Signs
Temp Pulse Resp BP Pulse Ox
98.4 F 111 18 150/94 97
01/01/24 08:12 01/01/24 08:12 01/01/24 08:12 01/01/24 08:12 01/01/24 08:12
Cardiovascular:: Irregular rate and rhythm
Respiratory:: Bilateral: CTA
Lung Excursion:: Normal
Abdomen:: Nontender
Extremity Edema:: None: Bilateral:
Navarro Catheter: No
[2024-01-01 15:30] VITALS: BP 141/86
[2024-01-01] MEDS: LOVENOX 40 MG SC (18:08)
[2024-01-01 19:31] VITALS: BP 130/86
[2024-01-01] MEDS: COREG 6.25 MG PO (20:44)
[2024-01-01 22:24] LABS: Glucose - Point of Care 124 mg/dl (70-99)
[2024-01-01 23:59] VITALS: BP 133/80
[2024-01-02 03:55] VITALS: BP 125/88
[2024-01-02 07:40] LABS: Glucose - Point of Care 138 mg/dl (70-99)
[2024-01-02 07:50] VITALS: BP 124/85
[2024-01-02] MEDS: LIDOCAINE 4% PATCH 1 PATCH TOPICAL (08:37)
[2024-01-02] MEDS: COREG 6.25 MG PO (08:39)
[2024-01-02] MEDS: CYMBALTA DELAYED RELEASE 60 MG PO ×2 (08:40→21:18)
[2024-01-02] MEDS: GLUCOPHAGE XR EXTENDED RELEASE 500 MG PO (08:41)
[2024-01-02] MEDS: VITAMIN D3 (cholecalciferol) 25 MCG PO (08:41)
[2024-01-02] MEDS: COZAAR 100 MG PO (08:42)
[2024-01-02] MEDS: PROCARDIA XL (EXTENDED RELEASE) 30 MG PO (08:42)
[2024-01-02] MEDS: VITAMIN B-12 1000 MCG PO (08:42)
--- NOTE | 2024-01-02 10:58 | CM ---
Patient seen bedside with significant other, reports no concerns at this time. Patient reports she received a text from her pharmacy that all her medications were received. Patient is hopeful to discharge home today, significant other to provide
transportation. CM will continue to follow for discharge planning needs.
Plan; home no needs.
[2024-01-02 11:40] VITALS: BP 137/83
--- NOTE | 2024-01-02 11:56 | W.PN.NEPH.PH ---
Today's Communication / Plan
-
- d/c planning
- instructions given on BP logging
Assessment/Plan
-
IMP:
Hypertensive urgency
Microscopic hematuria
Adrenal insufficiency
new DM a1c 6.5
Asthma
Fibromyalgia
History of glaucoma
Internal hemorrhoids-found on colonoscopy in 2020.� Patient has off-and-on bleeding
Sleep apnea-continue CPAP
Obesity with a BMI of 46
History of cervical spine DJD, mild left-sided neural foraminal stenosis C4-C5 and right-sided C6-C7
[id number] 2017
Plan:
A/w HTN urgency recent onset of HTN
- likely some component of pain contributing
- might have essential HTN as workup thus far is negative
w/u noted from the chart and does not support Pheo -repeat metanephrins as ordered (pending)
Jet was not high so unlikely hyperaldostate, states her DANIELLE is under control
no renal art stenosis on US
good kidney function cr of 0.6, check UA for baseline, EKG normal sinus, no LVH change
MRI wnl, CTH nl
BP meds: nifedipine 30mg daily, coreg 6.25mg BID, losartan 100mg daily
- noted to have some reflex tachycardia after CCB initiation. can uptitrate coreg as outpatient if needed.
- D-Dimer negative
Low salt diet and wt loss needed
Avoid NSAIDs
steroids for ?adrenal insufficiency --> now stopped
plan for follow up with neph as outpatient, instructions given on blood pressure logging
d/w pt in detail
d/w nursing
-
-
Date of Service: January 02, 2024
CC / HPI / ROS
-
Chief Complaint:
HTN
History of Present Illness:
hypertensive urgency
headache
Adrenal insufficiency (on steroids -- likely some contribution to HTN), stopped 01/02
Diabetes
Microscopic hematuria
Review of Systems:
continues to complain of neck pain
Labs
-
Labs:
WBC 10.1 10^3/uL (4.8-10.8) 12/31/23 07:06
RBC 5.18 10^6/uL (4.20-5.40) 12/31/23 07:06
Hgb 15.1 g/dL (12.0-16.0) 12/31/23 07:06
Hct 43.3 % (37.0-47.0) 12/31/23 07:06
Plt Count 449 10^3/uL (130-400) H 12/31/23 07:06
Sodium 136 mmol/L (135-145) 12/31/23 07:06
Potassium 4.4 mmol/L (3.5-5.1) 12/31/23 07:06
Chloride 99 mmol/L (98-107) 12/31/23 07:06
Carbon Dioxide 21 mmol/L (22-30) L 12/31/23 07:06
BUN 13 mg/dl (7-17) 12/31/23 07:06
Creatinine 0.5 mg/dL (0.6-1.0) L 12/31/23 07:06
eGFR > 60.00 12/31/23 07:06
Glucose 166 mg/dl (70-99) H 12/31/23 07:06
Calcium 9.9 mg/dl (8.4-10.2) 12/31/23 07:06
Albumin 3.9 g/dl (3.5-5.0) 12/30/23 10:26
Physical Exam
-
Vital Signs:
Vital Signs
Temp Pulse Resp BP Pulse Ox
99.7 F 98 18 124/85 97
01/02/24 07:50 01/02/24 07:50 01/02/24 07:50 01/02/24 07:50 01/02/24 07:50
Cardiovascular:: Regular rate and rhythm
Respiratory:: Bilateral: CTA
Lung Excursion:: Normal
Abdomen:: Nontender and Soft
Bowel Sounds:: Normal
Extremity Edema:: None: Bilateral:
Navarro Catheter: No
--- NOTE | 2024-01-02 14:34 | W.PN.HOSP.TC ---
Today's Communication/Plan
-
Still tachycardic to 140s with ambulation
Stop carvedilol and restart metoprolol XL at 50 mg daily dosage and watch heart rate
As long as heart rate is stable will discharge tomorrow.
Assessment / Plan
Assessment / Plan
CVS: S1-S2 normal
Chest: CTA B/L
Abdomen: Soft, NT / Bowel sounds present
Extremities: No edema
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
#Tachy with ambulation-more since she was started on calcium channel blockers
Possible reflex tachycardia from nifedipine
Patient was on Lopressor therefore we will switch back to Lopressor and see if the heart rate does better
No risk factors or symptoms of PE
D-dimer negative
# Hypertensive urgency
Poorly controlled hypertension
Continue losartan 100 mg . Metoprolol restarted (suspicion for pheochromocytoma not high at this point)
Discontinue Coreg
Continue Nifedipine 30 mg.
2 Gram sodium diet.
Aldosterone level not elevated.
Secondary hypertension workup as above in H&P.
Repeat plasma metanephrine, normetanephrine levels sent.
Renal artery ultrasound to rule out stenosis.
Hold meloxicam.
Nephrology evaluation appreciated.
# Headache-patient states that she gets headaches from the neck reasons
No Blurry vision.
Lidocaine patch for the neck.
MRI Brain with out acute changes.
# Adrenal insufficiency
Patient was started on hydrocortisone 15 in the morning and 10 in the evening in July
Was being weaned.
Last dose 12/31/23.
Follows with at [place].
# Diabetes with hemoglobin A1c 6.5. New diagnosis.
Diabetic education.
Dietary consultation.
Metformin started.
# Microscopic hematuria-repeat as outpatient
# Asthma-continue as needed nebulizer treatments
# Fibromyalgia-continue Cymbalta
# History of glaucoma-she used to get headaches which got better after glaucoma surgery
She does not use any eyedrops note
# Internal hemorrhoids-found on colonoscopy in 2020.� Patient has off-and-on bleeding
Needs to see GI as outpatient she has an appointment in May
Hemoglobin is stable
Will order hydrocortisone suppositories
# Sleep apnea-continue CPAP
# Obesity with a BMI of 45
States that she gained 15 pounds since July
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
# [id number] 2017
# DVT prophylaxis-Lovenox
# Full code
Discussed with nursing
Discussed with nephrology
Discussed with bedside
Anticipated Discharge: Within 24 hours
Subjective/Interval History
-
Date of Service: January 02, 2024
Objective Data
-
Vital Signs:
Vital Signs
Temp Pulse Resp BP Pulse Ox
98.1 F 101 18 137/83 96
01/02/24 11:40 01/02/24 11:40 01/02/24 11:40 01/02/24 11:40 01/02/24 11:40
I&O
01/01/24 01/02/24 01/03/24
06:59 06:59 06:59
Intake Total 540 / 1020 480 / 480
Output Total 720 / 720
Balance 540 / 1020 -240 / -240
[2024-01-02 15:45] VITALS: BP 129/81
[2024-01-02] MEDS: TOPROL XL 50 MG PO (15:58)
[2024-01-02] MEDS: LOVENOX 40 MG SC (17:30)
[2024-01-02 20:19] VITALS: BP 106/68
[2024-01-02 22:14] LABS: Glucose - Point of Care 113 mg/dl (70-99)
[2024-01-03 00:03] VITALS: BP 113/67
[2024-01-03 04:21] VITALS: BP 115/54
[2024-01-03 07:00] VITALS: BP 140/65
[2024-01-03 07:36] LABS: Hematocrit 43.7 % (37.0-47.0); Hemoglobin 14.9 g/dL (12.0-16.0); Mean Corp Hgb Conc. 34.1 g/dL (33.0-37.0); Mean Corpuscular Hgb 28.8 pg (27.0-31.0); Mean Corpuscular Volume 84.5 fL (81.0-99.0); Mean Platelet Volume 8.7 fL (7.4-10.4); Platelet Count 483 10^3/uL (130-400); Red Blood Cell Count 5.17 10^6/uL (4.20-5.40); Red Cell Dist. Width 12.8 % (11.5-14.5); White Blood Cell Count 10.1 10^3/uL (4.8-10.8)
[2024-01-03 07:48] LABS: Glucose - Point of Care 139 mg/dl (70-99)
[2024-01-03] MEDS: LIDOCAINE 4% PATCH 1 PATCH TOPICAL (08:17)
[2024-01-03] MEDS: CYMBALTA DELAYED RELEASE 60 MG PO (08:18)
[2024-01-03] MEDS: VITAMIN D3 (cholecalciferol) 25 MCG PO (08:18)
[2024-01-03] MEDS: GLUCOPHAGE XR EXTENDED RELEASE 500 MG PO (08:19)
[2024-01-03] MEDS: VITAMIN B-12 1000 MCG PO (08:19)
[2024-01-03] MEDS: COZAAR 100 MG PO (08:19)
[2024-01-03] MEDS: PROCARDIA XL (EXTENDED RELEASE) 30 MG PO (08:20)
[2024-01-03] MEDS: TOPROL XL 50 MG PO (08:21)
--- NOTE | 2024-01-03 08:27 | W.DCSUMMARY ---
Discharge Summary
Discharge Data
Date of Admission: 12/30/23
Date of Discharge: 01/03/24
-
Pending Results: No
Hospital Course
43 years old female presented with high blood pressure. Patient was diagnosed with hypertensive urgency. Patient was seen by palaeontologist. She was started on blood pressure medications. Adjustment were made in the hospital to control her blood
pressure. Patient was found to have microscopic hematuria. Renal ultrasound did not show signs of renal artery stenosis. She had good urine function with normal electrocardiogram. No signs of left ventricular hypertrophy. Magnetic resonance
imaging of the brain came back normal. D-dimer was negative. Patient was started on low-salt diet. She was advised to avoid nonsteroidal anti-inflammatory drugs. Patient had history of adrenal sufficiency and she was advised to follow-up with
her doctor and [facility]. Patient was advised to follow with her primary care doctor and nephrology as outpatient. Patient remained hemodynamically stable. Patient was discharged in a stable condition.
Physical Exam
General: Comfortable and not in distress
Respiratory: Clear
Cardiac: S1/S2 and Regular Rhythm
GI: Soft, nontender
: No gross hematuria
Skin: Warm
Neuro: No Motor Deficits and Nonfocal/grossly intact
Psych: Calm and Intact Judgment/Insight
Total discharge time spent to see the patient, examine the patient on the floor, review data and lab results, discuss discharge plan with patient, nursing staff around 65 minutes
Discharge Plan
-
Patient Disposition: Home (Routine Discharge)
Discharge Diagnosis/Procedures: Hypertensive urgency, poorly controlled hypertension, diabetes, fibromyalgia, history of colon, hemorrhoids, sleep apnea
Diet: Low Sodium and Diabetic, Carb Controlled
Activity: As tolerated
Driving Restrictions: As prior to admission
Stop these medications:: Meloxicam,Hydrocortisone,Metoprolol.
Activity Restrictions/Additional Instructions:
Weight loss advised. Follow-up with GI doctor for hemorrhoids. Follow-up with your eye doctor if you continue to have headaches. Repeat urinalysis as outpatient to rule out blood in the urine. Follow-up with your wash barrel leader.
Plasma epinephrine, metanephrine levels are pending at discharge. Follow-up with nephrology for the results.
Referrals:
Rubia Roberts MD [Active] - in two to three weeks
Cedric Young MD [Non-Admitting Privileges] -
Varsha Mcmillan PA-C [Family Provider] - in less than 1 week
Prescriptions:
New
nifedipine 30 mg Tablet Extended Release
30 mg PO DAILY Qty: 30 0RF
hydrocortisone acetate 25 mg Suppository
25 mg [place] HS Qty: 30 0RF
losartan 100 mg Tablet
100 mg PO DAILY Qty: 30 0RF
metformin 500 mg Tablet Extended Release 24 Hr
500 mg PO DAILY Qty: 30 0RF
Continued
albuterol sulfate 1 PUFF HFA aerosol inhaler
1 puff inhalation R Q4HPRN PRN (Reason: ASTHMA)
cyanocobalamin (vitamin B-12) 1,000 mcg Tablet
1,000 mcg PO DAILY
cholecalciferol (vitamin D3) [Vitamin D3] 25 mcg (1,000 unit) Tablet
25 mcg PO DAILY
lorazepam 0.5 mg Tablet
0.5 mg PO TID PRN (Reason: anxiety)
fluticasone furoate-vilanterol [Breo Ellipta] 200-25 mcg/dose Blister With Device
1 inh INHALATION DAILY
duloxetine [Cymbalta] 60 mg Capsule,Delayed Release(Dr/Ec)
60 mg PO BID Qty: 0 0RF
Discontinued
losartan 50 mg Tablet
50 mg PO DAILY
metoprolol succinate [Toprol XL] 50 mg Tablet Extended Release 24 Hr
50 mg PO DAILY
meloxicam [Mobic] 15 mg Tablet
15 mg PO DAILY
ginkgo biloba 40 mg Tablet
40 mg PO DAILY
flaxseed oil 1,000 mg Capsule
1,000 mg PO BID
hydrocortisone 10 mg Tablet
10 mg PO DAILY
turmeric 400 mg Capsule
400 mg PO QPM
Discharge Orders:
Discharge Patient (As Directed); Ordered 01/03/24
Ordered By: Jada Alegria
--- NOTE | 2024-01-03 08:41 | CM ---
Chart reviewed and patient has been cleared for discharge today, home no needs.
Plan; Home today no needs.
[2024-01-03 09:10] LABS: ALT (SGPT) 29 U/L (0-35); AST (SGOT) 28 U/L (14-36); Albumin 4.3 g/dl (3.5-5.0); Alkaline Phosphatase 89 U/L (38-126); Blood Urea Nitrogen 16 mg/dl (7-17); Calcium 9.6 mg/dl (8.4-10.2); Carbon Dioxide 24 mmol/L (22-30); Chloride 101 mmol/L (98-107); Estimated Creatinine Clearance > 125 ml/min; Glucose 138 mg/dl (70-99); Potassium 4.8 mmol/L (3.5-5.1); Sodium 135 mmol/L (135-145); Total Bilirubin 0.7 mg/dl (0.2-1.3); Total Protein 7.4 g/dl (6.3-8.2); eGFR > 60.00
== END 2024-01-03 10:36 | disposition home or self-care (01) | DRG 644 ==
LOC: 4 WEST ACU 12:20
PROVIDERS: Physician Assistant; ADMITTING PHYSICIAN Hospitalist; ATTENDING PHYSICIAN Internal Medicine; EMERGENCY PHYSICIAN Emergency Medicine; FAMILY PHYSICIAN Physician Assistant Medical; OTHER PHYSICIAN Internal Medicine
DX: E27.40 Unspecified adrenocortical insufficiency (principal); Z68.42 Body mass index [BMI] 45.0-49.9, adult; I16.0 Hypertensive urgency; I10 Essential (primary) hypertension; F32.A Depression, unspecified; F41.9 Anxiety disorder, unspecified; E66.9 Obesity, unspecified; M79.7 Fibromyalgia; Z87.891 Personal history of nicotine dependence; J45.909 Unspecified asthma, uncomplicated; K64.8 Other hemorrhoids; G47.33 Obstructive sleep apnea (adult) (pediatric); E11.65 Type 2 diabetes mellitus with hyperglycemia; R31.29 Other microscopic hematuria; G43.909 Migraine, unspecified, not intractable, without status migrainosus
CPT/HCPCS: 70551; 80048; 80053; 81003; 81015; 81025; 82962; 83036; 83835; 84443; 84484; 85025; 85027; 85379; 93005; 93975; 96374; 99285

== ENCOUNTER → 2024-01-10 18:00 | Outpatient (REF) | payer BC, SELFPAY ==
--- NOTE | 2024-01-07 10:22 | PN.DIAED02 ---
Referral
DSME Class Series Code: [id number]
Referred For: Diabetes Self-Management Training
PHI Release Authorization Form Signed: Yes
Demographic
(1) Type 2 diabetes mellitus
Status: Acute Code(s): E11.9 - Type 2 diabetes mellitus without complications
Patient's primary language-: Sami
Education: Advanced college degree
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
Hours Worked/Week: 20-40 (40)
- Social
Primary Support Person: Family (2 daughters, sign. other)
Primary Care Takers: Self
Living Arrangements: Family
- Learning Methods
Preferred Method: Reading, Hands-on demonstration, Group discussion
Barriers to Learning: None
Glycemic Control
- Blood Glucose Monitoring Assessment
Date: 01/07/24
Blood glucose monitoring at home: Yes
Monitor Brands: OneTouch (Verio Flex)
Frequency: 2x per day
Time: fasting, after breakfast, after lunch, after dinner
- Hemoglobin A1c
Date: 12/30/23
A1C Percentage (%): 6.5
Medical History of Diabetes
Family Diabetes History: Mother
Previous Diabetes Education: No
Previous visit with Dietitian: Yes
How long ago?: Unknown
Complications/Comorbidity/Specialist: Glaucoma (resolved), Hypertension, Neuropathy, Pulmonary disease (sleep apnea-wears CPAP), Other / symptoms (cervical and lumbar spinal stenosis)
Measures
- Anthropometrics
Height: 5 ft 9 in
Actual Weight: 305 lb 4 oz (314# (12/29/23))
- Blood Pressure / Pulse
Blood pressure: 130/78
- Diabetes Management
Medical Management for Diabetes: Complete physical exam (12/30/2023), Dental exam (09/25/2023), Dilated eye exam (11/02/2023)
Self-Care
- Tobacco Usage
Do you now, or have you ever smoked?: Quit more than 1 year ago
- Alcohol & Drugs Usage
Drinks Alcohol: Yes
Amount/day: Social Occasions (3/year)
- Meals & Dining
Meals & Dining: Patient skips meals: No, Food Intolerance / Allergy: No, Cultural / Sikhism Dietary Needs: No
Primary Food Room Service Manager: Self & significant other
Primary Make Ready Worker: Self & significant other
Dining Out Frequency: 1-3x per week (2)
- Physical Activity
Physical Limitation: No
Patient participates in physical Activity: No
- Patient-Self Assessment
Diabetes Knowledge: Fair
Feelings About Diabetes: Acceptance
General Health: Fair
Importance of Health: Extremely
Diabetes Interferes With:: Nothing
Depression Survey Score: 12
Care Plan
- Education Needs
Patient Education Needs: Diabetes disease process, Chronic complications, Acute complications, Medication, Monitoring, Physical activity, Psychosocial Adjustment, Nutritional management, Goal setting & problem solving
Recommended Diabetes Training Program based on assessment: Outpatient Diabetes Education Program
- Plan of Care
Plan of Care:
Isabela known to me from inpatient visit 01/09/2024. A1C 6.5%. Taking Metformin ER 500 mg QD. Continues to monitor BS 2x/day, FBS this am 125 mg/dl, 01/06/24 FBS 121 mg/dl, 2 hr pL 136 mg/dl. States significant other, Phillip is supportive and taking
over food shopping/cooking as he is knowledgeable of healthy choices. Prednison has stopped. BP is controlled. Goals established, including exercise, plan is to walk in neighborhood or at work (capable of walking in gym during inclement weather).
Direction to classroom given.
--- NOTE | 2024-01-07 10:39 | PN.DIAED04 ---
Education Record
- Education Record
Class Attended: Class 1 (pre registration 01/07/24 for outpt DSME classes starting 01/10/24)
DSME Class Series Code: [id number]
Instructor: Registered Nurse (Gabbie Rodriguez, RN, BSN, [facility])
Class Curriculum:
Outpatient Diabetes Education Program:
Initial Assessment (45 minutes)
Individualized assessment
Develop personal strategies to promote health and behavior change
Development of diabetes self-management support plan
Class Length (mins): 45
Pre-Program Knowledge: Needs review / Assistance
Pre-Test Score (%): 74
Goals
- Goal 1
Being Active: Exercise 30 minutes-5 times per week (Goal is to walk-either in neighborhood or with coworkers at school (walking around the building or in the gym in inclement weather).)
Goals To Be Evaluated: Exercise 30 mins-5x/week
- Goal 2
Healthy Eating: Make better food choices, Follow meal plan, Reduce portion sizes
Goals To Be Evaluated: Make better food choices. Follow meal plan. Reduce portion sizes
- Goal 3
Monitoring: Follow monitoring schedule
Goals To Be Evaluated: Follow monitoring times
--- NOTE | 2024-01-11 13:34 | PN.DIAED04 ---
Education Record
- Education Record
Class Attended: Class 1
DSME Class Series Code: [id number]
Instructor: Registered Nurse (Gabbie Rodriguez, RN, BSN, CDE)
Class Length (mins): 120
Post-Class 1 Test Score (%): 100
--- NOTE | 2024-01-11 13:35 | PN.DIAED14 ---
This is to notify you that your patient with diabetes, ANGELA VOGEL ( 1980), has enrolled in our diabetes self-management classes that are being held at [facility].
These classes will include an introduction to diabetes, diet, medication, exercise and prevention of complications. At the end of our class series, you will receive a report of your patient's participation and progress for your records.
Please contact me at the Diabetes Center, , if there is any particular information regarding your patient that might be helpful to me.
Sincerely,
--- NOTE | 2024-01-17 14:20 | PN.DIAED06 ---
Meal Plans - Regular
- Meal Plan
Diabetic Meal Plan Name: 2000 calories
Breakfast - Total Carbohydrate (grams): 45
Breakfast - Starch Carbohydrate: 0
Breakfast - Fruit Carbohydrate: 0
Breakfast - Milk Carbohydrate: 0
Breakfast - Nonstarchy Vegetables: Yes
Breakfast - Meat/Protein: 1
Breakfast - Fat: 2
Morning Snack - Total Carbohydrate (grams): 30
Morning Snack - Starch Carbohydrate: 0
Morning Snack - Fruit Carbohydrate: 0
Morning Snack - Milk Carbohydrate: 0
Morning Snack - Nonstarchy Vegetables: Yes
Morning Snack - Meat/Protein: 0.5
Morning Snack - Fat: 0
Lunch - Total Carbohydrate (grams): 45
Lunch - Starch Carbohydrate: 0
Lunch - Fruit Carbohydrate: 0
Lunch - Milk Carbohydrate: 0
Lunch - Nonstarchy Vegetables: Yes
Lunch - Meat/Protein: 3
Lunch - Fat: 1
Afternoon Snack - Total Carbohydrate (grams): 30
Afternoon Snack - Starch Carbohydrate: 0
Afternoon Snack - Fruit Carbohydrate: 0
Afternoon Snack - Milk Carbohydrate: 0
Afternoon Snack - Nonstarchy Vegetables: Yes
Afternoon Snack - Meat/Protein: 0.5
Afternoon Snack - Fat: 0
Dinner - Total Carbohydrate (grams): 45
Dinner - Starch Carbohydrate: 0
Dinner - Fruit Carbohydrate: 0
Dinner - Milk Carbohydrate: 0
Dinner - Nonstarchy Vegetables: Yes
Dinner - Meat/Protein: 4
Dinner - Fat: 2
Evening Snack - Total Carbohydrate (grams): 15
Evening Snack - Starch Carbohydrate: 0
Evening Snack - Fruit Carbohydrate: 0
Evening Snack - Milk Carbohydrate: 0
Evening Snack - Nonstarchy Vegetables: Yes
Evening Snack - Meat/Protein: 0
Evening Snack - Fat: 0
== END ==
LOC: DES 18:00
PROVIDERS: ATTENDING PHYSICIAN Physician Assistant Medical
DX: E11.9 Type 2 diabetes mellitus without complications (principal)
CPT/HCPCS: 99078

== ENCOUNTER → 2024-01-17 18:00 | Outpatient (REF) | payer BC, SELFPAY ==
--- NOTE | 2024-01-18 08:42 | PN.DIAED04 ---
Education Record
- Education Record
Class Attended: Class 2
DSME Class Series Code: [id number]
Instructor: Registered Dietitian (Kathe Bermudez, RD, LDN, CDE)
Class Length (mins): 120
== END ==
LOC: DES 18:00
PROVIDERS: ATTENDING PHYSICIAN Physician Assistant Medical
DX: E11.9 Type 2 diabetes mellitus without complications (principal)
CPT/HCPCS: 99078

== ENCOUNTER → 2024-01-24 12:00 | Outpatient (REF) | payer BC, SELFPAY ==
--- NOTE | 2024-01-31 11:00 | PN.DIAED04 ---
Education Record
- Education Record
Class Attended: Class 3
DSME Class Series Code: [id number]
Instructor: Registered Dietitian (Kathe Bermudez, RD, LDN, CDE)
Class Length (mins): 120
Post-Class 2 & 3 Test Score (%): 100
== END ==
LOC: DES 12:00
PROVIDERS: ATTENDING PHYSICIAN Physician Assistant Medical
DX: E11.9 Type 2 diabetes mellitus without complications (principal)
CPT/HCPCS: 99078

== ENCOUNTER → 2024-01-31 18:00 | Outpatient (REF) | payer BC, SELFPAY ==
--- NOTE | 2024-02-01 13:18 | PN.DIAED04 ---
Education Record
- Education Record
Class Attended: Class 4
DSME Class Series Code: [id number]
Instructor: Registered Nurse (Gabbie Rodriguez, RN, BSN, CDE)
Class Length (mins): 120
Post-Class 4 Test Score (%): 100
== END ==
LOC: DES 18:00
PROVIDERS: ATTENDING PHYSICIAN Physician Assistant Medical
DX: E11.9 Type 2 diabetes mellitus without complications (principal)
CPT/HCPCS: 99078

== ENCOUNTER → 2024-02-07 18:00 | Outpatient (REF) | payer BC, SELFPAY ==
--- NOTE | 2024-02-09 10:56 | PN.DIAED16 ---
This is to notify you that your patient with diabetes, ANGELA VOGEL ( 1980), has attended the entire series of Diabetes Self-Management Education Classes.
Class 1 (120 minutes): Diabetes Overview - monitoring, stress/psychosocial adjustment, support, goal setting
Class 2 (120 minutes): Meal Planning - serving sizes, menu plans
Class 3 (120 minutes): Introduction to Carbohydrate Counting, Analyzing Food Labels
Class 4 (120 minutes): Medication, Exercise and Activity
Class 5 (120 minutes): Sick Day Management, Strategies to Reduce Complications, Problem Solving, Resources
The following behavioral goals were identified:
Exercise 30 mins-5x/week
Make better food choices
Follow meal plan
Reduce portion sizes
Follow monitoring times
A follow-up call will be made within three to six months to evaluate attainment of these goals and to check post-program Hemoglobin A1c and overall progress. All class participants are encouraged to contact me if I can be any further assistance in
learning how to manage their diabetes.
Sincerely,
--- NOTE | 2024-02-10 12:19 | PN.DIAED04 ---
Education Record
- Education Record
Class Attended: Class 5
DSME Class Series Code: [id number]
Instructor: Registered Nurse (Gabbie Rodriguez, RN, BSN, [facility])
Class Curriculum:
Outpatient Diabetes Education Program:
Class 5 (120 minutes)
Prevent, detect, and treat acute complications
Prevent, detect, and treat chronic complications through risk reduction
Develop personal strategies to address psychosocial issues and concerns
Development of diabetes self-management support plan
Letter to physician with DSMS plan attached sent
Class Length (mins): 120
Post-Program Knowledge: Demonstrates competency
Post-Test Score (%): 88
Post-Program Assessment
- Post-Program Assessment
Actual Weight: 303 lb 6 oz
Blood pressure: 144/78
Post-Program Depression Survey Score: 3
Reviewing Previous Goals?: Yes
Pre-Program Depression Survey Score: 12
- Goals 1 Evaluation
Goals To Be Evaluated: Exercise 30 mins-5x/week
- Goals 2 Evaluation
Goals To Be Evaluated: Make better food choices. Follow meal plan. Reduce portion sizes
- Goals 3 Evaluation
Goals To Be Evaluated: Follow monitoring times
== END ==
LOC: DES 18:00
PROVIDERS: ATTENDING PHYSICIAN Physician Assistant Medical
DX: E11.9 Type 2 diabetes mellitus without complications (principal)
CPT/HCPCS: 99078

== ENCOUNTER → 2024-05-04 06:29 | Day surgery (SDC) | payer BC, SELFPAY ==
[2024-05-04 07:43] LABS: Glucose - Point of Care 131 mg/dl (70-99)
== END ==
LOC: GI 06:29
PROVIDERS: ATTENDING PHYSICIAN Internal Medicine Gastroenterology
DX: K62.5 Hemorrhage of anus and rectum (principal); K64.8 Other hemorrhoids; Q43.8 Other specified congenital malformations of intestine
CPT/HCPCS: 45378; 82962